=== PATIENT | male | born 1975 | race Caucasian/White ===

== ENCOUNTER 2016-12-23 15:02 | Emergency (ER) | payer MEDICARE, MEDICAID ==
[~2016-12-23] VITALS: Ht 182.9 cm; Wt 95.3 kg
[~2016-12-23 15:02] MED LIST: /ESCI20TA; /PANT40TA PO; ACETAMIN; AMBESOL TOP; BUPR200T PO; BUSP1TAB PO; CLON1TAB; EFFE75CA75 PO; FLON0.054; GABA800T3; HYDR-4274 PO; HYDR50TA8; HYDROCODONE; KLON0.5T PO; LUNE2TAB; METH10CO PO; METH10TA2 PO; NEUR300C PO; NEUR800T; OXYC40TA19; PERC10TA17 PO; PROT1TAB2 PO; TRAZ100T; TRAZ100T4 PO; TRAZ150T14 PO; TRAZ50TA4 PO; VIST50CA PO; WELL100T; WELL200T; WELLTAB40 PO
[2016-12-23] MEDS ORDERED: DEXI60CA PO (15:13)
[2016-12-23] MEDS ORDERED: ZONI25CA2 PO (15:13)
[2016-12-23] MEDS ORDERED: LATU40TA PO (15:14)
[2016-12-23] MEDS ORDERED: OXYC15TA76 PO (15:15)
[2016-12-23] MEDS ORDERED: SERO1TAB PO (15:15)
[2016-12-23 16:40] LABS: MEAN CORPUSCULAR HEMOGLOBIN 32.6 pg (27.0-33.0); MEAN CORPUSCULAR HGB CONC 35.4 g/dl (32.0-36.5); MEAN CORPUSCULAR VOLUME 92.2 fl (80.0-96.0); RED CELL DISTRIBUTION WIDTH 12.3 % (11.5-14.5); WHITE BLOOD COUNT 9.5 K/mm3 (4.0-10.0)
[2016-12-23 17:03] LABS: METHADONE URINE NEGATIVE (NEGATIVE)
[2016-12-23 17:12] LABS: ALBUMIN 4.3 GM/DL (3.2-5.2); ALBUMIN/GLOBULIN RATIO 1.48 (1.00-1.93); ALKALINE PHOSPHATASE 71 U/L (45-117); ALT/SGPT 17 U/L (12-78); ANION GAP 5 MEQ/L (8-16); AST/SGOT 13 U/L (15-37); BILIRUBIN,DIRECT < 0.1 MG/DL (0.0-0.2); BILIRUBIN,TOTAL 0.3 MG/DL (0.2-1.0); BLOOD UREA NITROGEN 16 MG/DL (7-18); CALCIUM LEVEL 8.3 MG/DL (8.5-10.1); CARBON DIOXIDE LEVEL 29 MEQ/L (21-32); CHLORIDE LEVEL 109 MEQ/L (98-107); CREATININE FOR GFR 1.02 MG/DL (0.70-1.30); GLOMERULAR FILTRATION RATE > 60.0 (>60); GLUCOSE, FASTING 87 MG/DL (70-105); POTASSIUM SERUM 4.6 MEQ/L (3.5-5.1); SODIUM LEVEL 143 MEQ/L (136-145); TOTAL PROTEIN 7.2 GM/DL (6.4-8.2)
[2016-12-23] MEDS ORDERED: traZODone 50 MG TAB PO ONE (20:30)
[2016-12-23] MEDS ORDERED: GABAPENTIN 300 MG CAP PO ONE (20:30)
[2016-12-24 02:51] VITALS: BP 100/54
--- NOTE | 2016-12-24 09:59 | ECGEPIP ---
Stationary ECG Study [facility] - ED Test Date: 2016-12-23 Pat Name: RUDY CHAMPION Department: Room: - Gender: M Medical Registrar: RamseyB: 1975 Requested By: ARACELI Damon Order Number: [id number] Reading MD: Reyna Phoenix Measurements Intervals [place] Rate: 59 P: 39 TX: 131 QRS: 28 QRSD: 108 T: 31 QT: 412 QTc: 411 Interpretive Statements SINUS BRADYCARDIA WITH SINUS ARRHYTHMIA DECREASED RATE 01/16/15 Electronically Signed On 12-24-2016 9:08:17 EDT by Reyna Phoenix
== END 2016-12-24 03:01 ==
LOC: M ED 16:36
DX: R45.851 Suicidal ideations (principal); F32.9 Major depressive disorder, single episode, unspecified; F17.210 Nicotine dependence, cigarettes, uncomplicated
CPT/HCPCS: 36415; 80048; 80076; 80306; 84443; 85027; 93005; 99285; G0480